=== PATIENT | female | born 1990 | race Caucasian/White ===

== ENCOUNTER 2024-11-02 16:00 | Observation (INO) ==
--- NOTE | 2024-11-02 16:23 | Emergency Department Note ---
HPI - General Adult General Chief complaint: Neuro Symptoms/Deficit Stated complaint: face and arm tingling Time Seen by Provider: 11/02/24 16:11 Source: patient Mode of arrival: walk-in Limitations: no limitations History of Present Illness HPI narrative: This is a 34 year old female patient that presents to the ER with c/o waking up at 0500 with c/o left facial tingling and left arm tingling. Patient denies any chest pain, SOB, abdominal pain, speech difficulties, weakness, back pain, visual difficulty or N/V/D Onset (ago): hour(s) (11) Associated symptoms: Reports denies other symptoms Treatments prior to arrival: Reports none Related Data Allergies Allergy/AdvReac Type Severity Reaction Status Date / Time No Known Drug Allergies Allergy Verified 11/02/24 16:14 Review of Systems Status of ROS 10 or more systems reviewed and unremark able except as noted in history and below Constitutional Denies: fever, chills, change in weight, fatigue, malaise or night sweats Eyes Denies: change in vision, blurry vision, blind spots, light sensitivity, eye discomfort or eye discharge Ears, nose, mouth, and throat Denies: throat pain, neck pain, throat swelling, difficulty swallowing, hoarseness, mouth pain or swelling of lips/tongue Cardiovascular Denies: chest pain, palpitations, edema, swelling of feet/ankles, lightheadedness, shortness of breath with exertion or shortness of breath when lying down Respiratory Denies: shortness of breath, cough, wheezing, stridor, pain on inspiration, change in phlegm color or coughing up blood Gastrointestinal Denies: abdominal pain, nausea, vomiting, coffee grounds in vomit, heartburn, diarrhea, constipation or bloating Genitourinary Denies: painful urination, urinary frequency, urinary urgency, urinary incontinence, blood in urine or difficulty voiding Musculoskeletal Denies: back pain, neck pain, extremity pain, extremity swelling, joint pain, limited range of motion or joint swelling Integumentary/Breast Denies: rash, itching, redness, skin pain, skin tenderness, skin swelling or sores Neurological Reports: other (left facial tingling, left arm tingling); Denies: headache, numbness in extremities, weakness in extremities, lack of coordination, dizziness or vertigo Psychiatric Denies: anxiety, mood swings, panic attacks, change in sleep pattern or hopelessness Endocrine Denies: excessive urination, excessive thirst, fatigue or cold intolerance Hematologic/Lymphatic Denies: easy bruising, easy bleeding or enlarged lymph nodes Allergic/Immunologic Denies: hives, throat swelling, tongue swelling, facial swelling, wheezing or itchy eyes [facility] Medical History (Updated 11/02/24 @ 16:12 by Belle Gorman RN) PCOS (polycystic ovarian syndrome) Migraines Hypertension Surgical History (Updated 11/02/24 @ 16:12 by Belle Gorman RN) History of open reduction and internal fixation (ORIF) procedure Hx of cholecystectomy Social History Smoking status: never smoker Exam Constitutional: normal general appearance Vital Signs - 24 hr 11/02/24 16:02 Temperature 98.6 F Pulse Rate 86 Respiratory Rate 18 Blood Pressure 145/90 Pulse Oximetry 98 HENMT: normocephalic, head/scalp atraumatic, hearing grossly normal bilaterally, external ears normal, EACs normal, nasal mucous membranes normal, external nose normal, oral mucous membranes normal and oropharynx normal Eyes: PERRL, EOMs intact bilaterally, conjunctivae normal and no scleral icterus Neck/C-Spine: visual inspection normal and trachea midline Lymph: no lymphadenopathy noted Chest: inspection of chest normal Respiratory: breath sounds equal bilaterally, normal respiratory effort, clear to auscultation bilaterally, no wheezes, no rales, no retractions, no use of accessory muscles and chest percussion normal Cardiovascular: normal heart rate noted, regular rhythm noted, no gallop, no rub, no murmur, no JVD, no clicks, peripheral pulses 2+ throughout, no bruits noted and no additional abnormal heart sounds Gastrointestinal: abdomen normal to inspection, abdomen soft to palpation, nontender to palpation, nontender to percussion, nondistended, normoactive bowel sounds, no hepatosplenomegaly, no masses, no pulsatile mass, no ascites and no hernia Genitourinary: no CVA tenderness Back/Pelvis: spine normal to inspection Extremities: normal to inspection, normal to palpation, no tenderness, full ROM, no joint enlargement and no deformity Neurology: deburrer II-XII intact, no movement abnormality noted, no focal motor deficit noted, no sensory deficits noted, gait normal, speech normal, coordination normal, no pronator drift noted, no fasciculations noted and GCS normal Psychiatry: mental status grossly normal, oriented x3, thought process normal, cooperative and affect normal Skin: skin color normal Course Course Hospital Course: 1740: consult placed to for neurology consult 1804: spoke to Dr Parker from and she states to get the MRI of Brain and C spine tomorrow in the morning with and without contrast. Will admit patient to the hospital for further evaluation and treatment. VSS, no s/s of acute distress noted Vital Signs Vital signs: Vital Signs Temperature 98.6 F 11/02/24 16:02 Pulse Rate 86 11/02/24 16:02 Respiratory Rate 18 11/02/24 16:02 Blood Pressure 145/90 11/02/24 16:02 Pulse Oximetry 98 11/02/24 16:02 Temperature 98.6 F 11/02/24 16:02 Pulse Rate 86 11/02/24 16:02 Respiratory Rate 18 11/02/24 16:02 Blood Pressure 145/90 11/02/24 16:02 Pulse Oximetry 98 11/02/24 16:02 Medical Decision Making Differential Diagnosis Differential Diagnosis: viral illness Medical Records Medical records reviewed: Yes I reviewed the patient's medical records Lab Data Lab results reviewed: Yes I reviewed the patient's lab results Labs: Lab Results 11/02/24 11/02/24 Range/Units 16:10 16:30 WBC 8.7 (4.3-9.3) K/uL RBC 4.7 (4.00-5.50) M/uL Hgb 13.5 (12.5-15.8) gm/dL Hct 40.4 (35.9-46.7) % MCV 86.6 (81.0-93.7) fl MCH 28.9 (27.6-32.2) pg MCHC 33.3 (33.1-35.3) g/dl RDW 13.7 (11.4-14.2) % Plt Count 234 (152-353) K/uL MPV 8.8 (6.9-10.8) fl Gran % 66.6 (47.8-71.3) % Lymph % (Auto) 24.6 (20.0-43.0) % [place] % (Auto) 4.1 (3.6-9.8) % Eos % (Auto) 4.1 H (0.4-2.8) % Baso % (Auto) 0.6 (0.1-0.85) Lymph # (Auto) 2.1 (1.1-3.1) [place] # (Auto) 0.4 L (1.1-3.1) Eos # (Auto) 0.4 H (0.0-0.2) Baso # (Auto) 0.1 (0.0-0.1) Absolute Gran (auto) 5.8 (2.3-6.0) Sodium 143 (136-145) mmol/L Potassium 3.7 (3.6-5.2) mmol/L Chloride 106.0 (98-107) mmol/L Carbon Dioxide 28 (21-32) mmol/L Anion Gap 9.0 (4-14) mEq/L BUN 17 (7-18) mg/dL Creatinine 0.8 (0.6-1.3) mg/dL Estimated GFR 99.1 (>59.9) Glucose 86 (70-110) mg/dL Calcium 9.2 (8.5-10.1) mg/dL Total Bilirubin 0.33 (0.0-1.0) mg/dL AST 13 L (15-37) U/L ALT 23 L (30-65) U/L Alkaline Phosphatase 113 (50-136) U/L Troponin I High Sens 4.80 (4.0-60.4) ng/L Total Protein 7.3 (6.4-8.2) g/dL Albumin 4.0 (3.4-5.0) g/dL Urine Color Yellow (STRAW/YELL.) Urine Appearance Clear (CLEAR) Ur Specific [place] 1.025 (1.001-1.035) Urine Protein Negative (NEGATIVE) Urine Glucose (UA) Normal (NORMAL) Urine Ketones Negative (NEGATIVE) Urine Occult Blood Negative (NEG - TRACE) Urine Nitrite Negative (NEGATIVE) Urine Bilirubin Negative (NEGATIVE) Urine Urobilinogen Normal (NORMAL) Ur Leukocyte Esterase Negative (NEGATIVE) Urine Test Negative (Negative) Fluid pH 6.0 (5 - 9) Imaging Data CT scan - head: Attestation: I have reviewed the pertinent imaging results. ECG Data Attestation: I have reviewed the pertinent ECG results. Discharge Plan Discharge Patient Disposition: Admitted As Observation Condition: Stable Chief Complaint: Neuro Symptoms/Deficit Clinical Impression: Transient cerebral ischemia, Left face and left arm tingling Print Language: Serbian Referrals: Guru Marie [Primary Care Provider] - Time of Disposition: 18:07
[2024-11-02 16:41] LABS: Basophils #(Absolute) Auto 0.1 (0.0-0.1); Basophils%(Percent) Auto 0.6 (0.1-0.85); Eosinophils#(Absolute)Auto 0.4 (0.0-0.2); Eosinophils%(Percent) Auto 4.1 % (0.4-2.8); Granulocytes % - Auto 66.6 % (47.8-71.3); Granulocytes#(Absolute)- Auto 5.8 (2.3-6.0); Hematocrit 40.4 % (35.9-46.7); Mean Corpuscular Volume 86.6 fl (81.0-93.7); Monocytes #(Absolute)- Auto 0.4 (1.1-3.1); Monocytes %(Percent)- Auto 4.1 % (3.6-9.8); Platelet Count 234 K/uL (152-353); White Blood Count 8.7 K/uL (4.3-9.3)
[2024-11-02 16:50] LABS: Specific Gravity Urine 1.025 (1.001-1.035); Urine Appearance CLEAR (CLEAR); Urine Blood NEGATIVE (NEG - TRACE); Urine Color YELLOW (STRAW/YELL.)
[2024-11-02 16:51] LABS: Urine Urobilinogen Normal (NORMAL)
[2024-11-02 16:51] LABS: Potassium 3.7 mmol/L (3.6-5.2)
[2024-11-02] MEDS ORDERED: ONDANSETRON HCL/PF 4 MG/2 ML VIAL INJ PRN (19:35)
[2024-11-02] MEDS ORDERED: DOCUSATE SODIUM 100 MG CAPSULE PO PRN (19:35)
[2024-11-02] MEDS ORDERED: MAGNESIUM, ALUMINUM HYDROXIDE 30 ML ORAL.SUSP PO PRN (19:35)
[2024-11-02] MEDS: FAMOTIDINE 20 MG TABLET PO SCH (21:29)
[2024-11-02] MEDS: ACETAMINOPHEN 500 MG TABLET PO PRN (21:29)
[2024-11-03 05:28] LABS: Basophils%(Percent) Auto 0.5 (0.1-0.85); Eosinophils#(Absolute)Auto 0.3 (0.0-0.2); Eosinophils%(Percent) Auto 4.4 % (0.4-2.8); Granulocytes % - Auto 64.5 % (47.8-71.3); Granulocytes#(Absolute)- Auto 4.6 (2.3-6.0); Hematocrit 38.6 % (35.9-46.7); Mean Corpuscular Volume 86.8 fl (81.0-93.7); Monocytes #(Absolute)- Auto 0.4 (1.1-3.1); Monocytes %(Percent)- Auto 5.2 % (3.6-9.8); Platelet Count 211 K/uL (152-353); White Blood Count 7.1 K/uL (4.3-9.3)
[2024-11-03 05:35] LABS: Potassium 3.7 mmol/L (3.6-5.2)
--- NOTE | 2024-11-03 08:27 | History & Physical Report ---
H&P: HPI History of Present Illness Chief complaint: left facial and arm tingling, TIA Narrative: Ms. Handy awoke yesterday morning with L facial numbness and L arm tinging and presented to the ED later in the afternoon. [facility] was consulted recommending MRI and overnight observation. Patient does report decrease in numbness and tingling to L side this morning. She does have history of migraines and states that she had headache the night prior but would not describe it like her migraines in the past. Prior migraine treatments have been tylenol with motrin, and toradol w/ benadryl. She was recently prescribed topiramate but has not started it. Labs and vitals are unremarkable. CXR was negative. CT head did show ischemic changes vs demyelinization. Review of Systems Status of ROS 10 or more systems reviewed and unremark able except as noted in history and below Constitutional Denies: fever, chills, change in weight, fatigue, malaise or night sweats Eyes Denies: change in vision, blurry vision, blind spots, light sensitivity, eye discomfort or eye discharge Ears, nose, mouth, and throat Denies: throat pain, neck pain, throat swelling, difficulty swallowing, hoarseness, mouth pain, swelling of lips/tongue or vertigo Cardiovascular Denies: chest pain, palpitations, edema, swelling of feet/ankles, lightheadedness, shortness of breath with exertion or shortness of breath when lying down Respiratory Denies: shortness of breath, cough, wheezing, stridor, pain on inspiration, change in phlegm color or coughing up blood Gastrointestinal Denies: abdominal pain, nausea, vomiting, coffee grounds in vomit, heartburn, diarrhea, constipation, bloating or difficulty swallowing Genitourinary Denies: painful urination, urinary frequency, urinary urgency, urinary incontinence, blood in urine or difficulty voiding Musculoskeletal Denies: back pain, neck pain, extremity pain, extremity swelling, joint pain, limited range of motion or joint swelling Integumentary/Breast Denies: rash, itching, redness, skin pain, skin tenderness, skin swelling or sores Neurological Reports: headache (started thursday), numbness in extremities (L arm) and other (left facial tingling, left arm tingling); Denies: weakness in extremities, lack of coordination, dizziness or vertigo Psychiatric Denies: anxiety, mood swings, panic attacks, change in sleep pattern or hopelessness Endocrine Denies: excessive urination, excessive thirst, fatigue or cold intolerance Hematologic/Lymphatic Denies: easy bruising, easy bleeding or enlarged lymph nodes Allergic/Immunologic Denies: hives, throat swelling, tongue swelling, facial swelling, wheezing or itchy eyes PFSH PFSH Medical History (Updated 11/03/24 @ 08:22 by Roberto Guerrero NP) PCOS (polycystic ovarian syndrome) Migraines Hypertension Surgical History (Updated 11/02/24 @ 16:12 by Belle Gorman RN) History of open reduction and internal fixation (ORIF) procedure Hx of cholecystectomy Social History Smoking status: never smoker Problems where you live: no known problems Highest level of school completed/degree received: [place] Home Medications and Allergies Home Medications Medication Instructions Recorded Confirmed Type ergocalciferol (vitamin D2) 1,250 1,250 mcg PO Q7D 11/03/24 11/03/24 History mcg (50,000 unit) capsule (Vitamin D2) omeprazole 20 mg capsule,delayed 20 mg PO DAILY 11/03/24 11/03/24 History release tirzepatide (weight loss) 7.5 7.5 mg subcut Q7D 11/03/24 11/03/24 History mg/0.5 mL subcutaneous pen injector (Zepbound) Allergies Allergy/AdvReac Type Severity Reaction Status Date / Time No Known Drug Allergies Allergy Verified 11/02/24 16:14 Exam Constitutional: normal general appearance Vital Signs - 24 hr 11/02/24 16:02 11/02/24 19:11 11/02/24 19:35 Temperature 98.6 F 98.6 F 98.3 F Pulse Rate 86 86 Pulse Rate [Brachi al] 79 Respiratory Rate 18 18 18 Blood Pressure 145/90 145/90 Blood Pressure [Le ft Arm] 136/80 Pulse Oximetry 98 98 94 L Oxygen Delivery Me thod Room Air 11/02/24 19:35 11/02/24 19:36 11/02/24 19:36 Temperature 98.3 F 98.3 F Pulse Rate Pulse Rate [Brachi al] 79 79 Respiratory Rate 18 18 Blood Pressure Blood Pressure [Le ft Arm] 136/80 136/80 Pulse Oximetry 96 94 L Oxygen Delivery Me thod Room Air Room Air Room Air 11/02/24 23:35 11/03/24 03:44 11/03/24 07:58 Temperature 97.9 F 97.5 F L 97.8 F Pulse Rate Pulse Rate [Brachi al] 72 72 71 Respiratory Rate 21 20 19 Blood Pressure Blood Pressure [Le ft Arm] 127/69 130/68 105/48 Pulse Oximetry 98 96 97 Oxygen Delivery Me thod Room Air Room Air Room Air HENMT: normocephalic, head/scalp atraumatic, hearing grossly normal bilaterally, external ears normal, EACs normal, nasal mucous membranes normal, external nose normal, oral mucous membranes normal and oropharynx normal Eyes: PERRL, EOMs intact bilaterally, conjunctivae normal and no scleral icterus Neck/C-Spine: visual inspection normal and trachea midline Lymph: no lymphadenopathy noted Chest: inspection of chest normal Respiratory: breath sounds equal bilaterally, normal respiratory effort, clear to auscultation bilaterally, no wheezes, no rales, no retractions, no use of accessory muscles and chest percussion normal Cardiovascular: normal heart rate noted, regular rhythm noted, no gallop, no rub, no murmur, no JVD, no clicks, peripheral pulses 2+ throughout, no bruits noted and no additional abnormal heart sounds Gastrointestinal: abdomen normal to inspection, abdomen soft to palpation, nontender to palpation, nontender to percussion, nondistended, normoactive bowel sounds, no hepatosplenomegaly, no masses, no pulsatile mass, no ascites and no hernia Genitourinary: no CVA tenderness Back/Pelvis: spine normal to inspection Extremities: normal to inspection, normal to palpation, no tenderness, full ROM, no joint enlargement and no deformity Neurology: operations intelligence superintendent II-XII intact, no movement abnormality noted, no focal motor deficit noted, no sensory deficits noted, gait normal, speech normal, coordination normal, no pronator drift noted, no fasciculations noted and GCS normal Psychiatry: mental status grossly normal, oriented x3, thought process normal, cooperative and affect normal Skin: skin color normal Assessment and Plan Assessment and Plan (1) Numbness and tingling: Assessment and Plan: Regular diet MRI w/ w/o POWER, Neck today Neuro q4hr Lipid panel Carotid US Code(s): R20.0 - Anesthesia of skin; R20.2 - Paresthesia of skin (2) Hypertension: Assessment and Plan: Stable Code(s): I10 - Essential (primary) hypertension (3) Migraines: Assessment and Plan: MRI today Consider tx pending MRI results Code(s): G43.909 - Migraine, unspecified, not intractable, without status migrainosus Results Labs Labs: CBC 11/02/24 11/03/24 Range/Units 16:30 05:20 WBC 8.7 7.1 (4.3-9.3) K/uL RBC 4.7 4.5 (4.00-5.50) M/uL Hgb 13.5 13.3 (12.5-15.8) gm/dL Hct 40.4 38.6 (35.9-46.7) % Plt Count 234 211 (152-353) K/uL Gran % 66.6 64.5 (47.8-71.3) % Lymph % (Auto) 24.6 25.4 (20.0-43.0) % [place] % (Auto) 4.1 5.2 (3.6-9.8) % Eos % (Auto) 4.1 H 4.4 H (0.4-2.8) % Baso % (Auto) 0.6 0.5 (0.1-0.85) Lymph # (Auto) 2.1 1.8 (1.1-3.1) [place] # (Auto) 0.4 L 0.4 L (1.1-3.1) Eos # (Auto) 0.4 H 0.3 H (0.0-0.2) Baso # (Auto) 0.1 0.0 (0.0-0.1) Absolute Gran (auto) 5.8 4.6 (2.3-6.0) CMP 11/02/24 11/03/24 16:30 05:20 Sodium 143 141 Potassium 3.7 3.7 Chloride 106.0 107.0 Carbon Dioxide 28 25 BUN 17 12 Creatinine 0.8 0.7 Glucose 86 90 Calcium 9.2 8.8 Liver Function 11/02/24 Range/Units 16:30 Total Bilirubin 0.33 (0.0-1.0) mg/dL AST 13 L (15-37) U/L ALT 23 L (30-65) U/L Alkaline Phosphatase 113 (50-136) U/L Albumin 4.0 (3.4-5.0) g/dL Urine 11/02/24 16:10 Urine Color Yellow Urine Appearance Clear Ur Specific [place] 1.025 Urine Protein Negative Urine Glucose (UA) Normal Imaging Imaging ordered: Chest x-ray and CT scan - head [facility] [address] [place] [id number] XRay Report Signed Patient: Heaven Handy MR#: [id number] : 1990 Acct:[id number] Age/Sex: 34 / F ADM Date: 11/02/24 Loc: ED Attending Dr: Ordering Physician: Frances Cosby Date of Service: 11/02/24 Procedure(s): XR chest 1V Accession Number(s): [id number] cc: Frances Cosby~ EXAM: XR CHEST 1V HISTORY: FACE AND ARM TINGLING, CHEST PAIN; CV/STC COMPARISON: No relevant prior studies were available for comparison at the time of interpretation. TECHNIQUE: XR CHEST 1V FINDINGS: Chest: Lines and tubes: None Mediastinum: Cardiac and mediastinal shadow is within normal limits for size and contour. Pulmonary vessels: No pulmonary vascular congestion. Lung calzada: No suspicious airspace opacity. Pleura: No effusion. No pneumothorax. Bones and soft tissues: No acute osseous or soft tissue abnormality. IMPRESSION: 1. No acute cardiopulmonary abnormality THIS IS AN ELECTRONICALLY VERIFIED FINAL REPORT 11/02/2024 5:08 PM - Electronically signed by Joe Tuttle MD Dictated By: Joe Tuttle M.D. Signed By: 11/02/248 DD/ 04 TD/TT: 11/02/241705 [employer]: [employer] [address] [place] [id number] Scan Report Signed Patient: Heaven Handy MR#: [id number] : 1990 Acct:[id number] Age/Sex: 34 / F ADM Date: 11/02/24 Loc: ED Attending Dr: Ordering Physician: Frances Cosby Date of Service: 11/02/24 Procedure(s): CT head/brain wo con Accession Number(s): [id number] cc: Guru Marie; Frances Cosby~ EXAM: CT HEAD/BRAIN WO CON HISTORY: facial tinglingfacial tingling; COMPARISON: None available. TECHNIQUE: Multiple axial images of the brain were obtained from the skull base to the vertex without administration of IV contrast. Dose reduction techniques including Automated Exposure Control (AEC) and adjustment of mA and kV were utilized. FINDINGS: No acute intraparenchymal hemorrhage or mass can be identified. No extra-axial fluid collections are seen. No alteration in the attenuation of the brain parenchyma can be identified to suggest acute or subacute ischemic change. There are some very mild nonspecific white matter signal changes in the supratentorial white matter 20 this could be due to early small-vessel ischemic changes and certainly demyelinating disorder could give a similar appearance. Follow-up with MRI with and without contrast may be of benefit for improved characterization. The ventricular system is symmetric and nondilated. The ex tracranial structures appear unremarkable. IMPRESSION: 1. Nodular white matter changes as above. THIS IS AN ELECTRONICALLY VERIFIED FINAL REPORT 11/02/2024 5:13 PM - Electronically signed by Fredi Mayen MD Dictated By: Minh Mayen M.D. Signed By: 11/02/24 1713 DD/ 1615 TD/TT: 11/02/24 1701 Computerized Mill Recorder:
[2024-11-03] MEDS: PANTOPRAZOLE SODIUM 40 MG TABLET.DR PO SCH (09:31)
[2024-11-04 05:26] LABS: Basophils%(Percent) Auto 0.5 (0.1-0.85); Eosinophils#(Absolute)Auto 0.3 (0.0-0.2); Eosinophils%(Percent) Auto 3.8 % (0.4-2.8); Granulocytes % - Auto 69.4 % (47.8-71.3); Granulocytes#(Absolute)- Auto 5.9 (2.3-6.0); Hematocrit 38.8 % (35.9-46.7); Mean Corpuscular Volume 87.1 fl (81.0-93.7); Monocytes #(Absolute)- Auto 0.3 (1.1-3.1); Monocytes %(Percent)- Auto 3.6 % (3.6-9.8); Platelet Count 220 K/uL (152-353); White Blood Count 8.5 K/uL (4.3-9.3)
[2024-11-04 05:45] LABS: Potassium 3.4 mmol/L (3.6-5.2)
[2024-11-04 07:57] VITALS: PULSE 69
[2024-11-04] MEDS: POTASSIUM CHLORIDE 20 MEQ TAB.ER.PRT PO ONE (09:26)
[2024-11-04] MEDS: MAGNESIUM OXIDE 400 MG TABLET PO ONE (09:26)
--- NOTE | 2024-11-04 11:14 | Discharge Summary ---
DS: Providers Provider Date of admission: 11/02/24 18:22 Primary care physician: Guru Marie Admitting clinician: Frances Cosby Attending physician on admission: Denia Palma Attending physician on discharge: Denia Palma Discharging clinician: Denia Palma Anticipated date of discharge: 11/04/24 DS: Diagnosis Discharge Diagnosis (1) Demyelinating disease: (2) Numbness and tingling: (3) Hypertension: Qualifiers: Hypertension type: primary hypertension Qualified Code(s): I10 - Essential (primary) hypertension (4) Migraines: Qualifiers: Intractability: not intractable Migraine type: unspecified Status migrainosus presence: without status migrainosus Qualified Code(s): G43.909 - Migraine, unspecified, not intractable, without status migrainosus Plan Pantoprazole Sodium 40 mg PO DAILY Famotidine 20 mg PO BID Acetaminophen 500 mg PO Q6H PRN Ondansetron hcl 4 mg INJ Q6H PRN Magnesium Hydroxide 30 ml PO DAILY PRN Docusate Sodium 100 mg PO DAILY PRN Discharge home for self care. Neurology Referral with [facility] DS: Summary Hospital Course Hospital Course: Ms. Handy awoke yesterday morning with L facial numbness and L arm tinging and presented to the ED later in the afternoon. [facility] was consulted recommending MRI and overnight observation. Patient does report decrease in numbness and tingling to L side this morning. She does have history of migraines and states that she had headache the night prior but would not describe it like her migraines in the past. Prior migraine treatments have been Tylenol with Motrin, and Toradol w/ Benadryl. She was recently prescribed topiramate but has not started it. Labs and vitals are unremarkable. CXR was negative. CT head did show ischemic changes vs demyelinization. Patient had an uneventful night. Facial and arm tingling have resolved. Patient reports she has had an MRI in the past (high school) and was told she had migraines. Discussed neurology referral options with patient, referral being sent to [facility]. Educated patient on no driving until cleared by Neurology specialist. Patient is ready for discharge home for self care. Status at Discharge Functional status at discharge: independent ambulation Overall status at discharge: patient is back to baseline Time Spent with Patient Time attestation: Total time spent providing and/or coordinating discharge services: 67 minutes Time spent: greater than 30 minutes Exam Exam: Patient in NAD. Constitutional: abnormal general appearance (disheveled), no apparent distress, abnormal body habitus (obese), limitations noted (No Driving) and alert Vital Signs - 24 hr 11/03/24 12:00 11/03/24 16:00 11/03/24 19:58 Temperature 98 F 98.2 F 98.3 F Pulse Rate [Brachi al] 67 81 89 Respiratory Rate 19 19 16 Blood Pressure [Le ft Arm] 137/48 136/67 125/55 Pulse Oximetry 98 98 100 Oxygen Delivery Me thod Room Air Room Air Room Air 11/03/24 23:49 11/04/24 03:57 11/04/24 07:56 Temperature 97.6 F 98.8 F 98.3 F Pulse Rate [Brachi al] 74 78 69 Respiratory Rate 16 16 17 Blood Pressure [Le ft Arm] 114/48 120/70 119/65 Pulse Oximetry 100 96 99 Oxygen Delivery Me thod Room Air Room Air Room Air HENMT: normocephalic, head/scalp atraumatic, hearing grossly normal bilaterally, external ears normal, EACs normal, nasal mucous membranes normal, external nose normal, oral mucous membranes normal and oropharynx normal Eyes: PERRL, EOMs intact bilaterally, conjunctivae normal and no scleral icterus Neck/C-Spine: visual inspection normal and trachea midline Lymph: no lymphadenopathy noted Chest: inspection of chest normal Respiratory: breath sounds equal bilaterally, normal respiratory effort, clear to auscultation bilaterally, no wheezes, no rales, no retractions, no use of accessory muscles and chest percussion normal Cardiovascular: normal heart rate noted, regular rhythm noted, no gallop, no rub, no murmur, no JVD, no clicks, peripheral pulses 2+ throughout, no bruits noted and no additional abnormal heart sounds Gastrointestinal: abdomen normal to inspection, abdomen soft to palpation, nontender to palpation, nontender to percussion, nondistended, normoactive bowel sounds, no hepatosplenomegaly, no masses, no pulsatile mass, no ascites and no hernia Genitourinary: no CVA tenderness Back/Pelvis: spine normal to inspection Extremities: normal to inspection, normal to palpation, no tenderness, full ROM, no joint enlargement and no deformity 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, no movement abnormality noted, no focal motor deficit noted, no sensory deficits noted, gait normal, speech normal, coord ination normal, no pronator drift noted, no fasciculations noted and GCS normal Psychiatry: mental status grossly normal, oriented x3, thought process normal, cooperative and affect normal Skin: skin color abnormal Reports (flushed) (face), no rash, no lesions, no ecchymosis noted, no wounds, no lacerations, skin turgor normal, no jaundice, no petechiae, no mottling, nails abnormality noted and no alopecia DS: Data Data Completed and Pending Labs on day of discharge: Labs from last 24 hours 11/04/24 05:20 WBC 8.5 RBC 4.5 Hgb 13.1 Hct 38.8 MCV 87.1 MCH 29.4 MCHC 33.7 RDW 13.5 Plt Count 220 MPV 8.6 Gran % 69.4 Lymph % (Auto) 22.7 Towns % (Auto) 3.6 Eos % (Auto) 3.8 H Baso % (Auto) 0.5 Lymph # (Auto) 1.9 Towns # (Auto) 0.3 L Eos # (Auto) 0.3 H Baso # (Auto) 0.0 Absolute Gran (auto) 5.9 Sodium 141 Potassium 3.4 L Chloride 106.0 Carbon Dioxide 25 Anion Gap 10.0 BUN 13 Creatinine 0.9 Estimated GFR 86.0 Glucose 109 Calcium 8.8 Triglycerides 151 Cholesterol 130 LDL Cholesterol 79.0 VLDL Cholesterol, Calc 30 HDL Cholesterol 40 LDL/HDL Ratio 2.0 Cholesterol/HDL Ratio 3 Imaging Chest x-ray: Attestation: I have reviewed the pertinent imaging results. Radiologist's impression: XR CHEST 1V HISTORY: FACE AND ARM TINGLING, CHEST PAIN; CV/STC COMPARISON: No relevant prior studies were available for comparison at the time of interpretation. TECHNIQUE: XR CHEST 1V FINDINGS: Chest: Lines and tubes: None Mediastinum: Cardiac and mediastinal shadow is within normal limits for size and contour. Pulmonary vessels: No pulmonary vascular congestion. Lung calzada: No suspicious airspace opacity. Pleura: No effusion. No pneumothorax. Bones and soft tissues: No acute osseous or soft tissue abnormality. IMPRESSION: 1. No acute cardiopulmonary abnormality CT scan - head: Attestation: I have reviewed the pertinent imaging results. Radiologist's impression: CT HEAD/BRAIN WO CON HISTORY: facial tinglingfacial tingling; COMPARISON: None available. TECHNIQUE: Multiple axial images of the brain were obtained from the skull base to the vertex without administration of IV contrast. Dose reduction techniques including Automated Exposure Control (AEC) and adjustment of mA and kV were utilized. FINDINGS: No acute intraparenchymal hemorrhage or mass can be identified. No extra-axial fluid collections are seen. No alteration in the attenuation of the brain parenchyma can be identified to suggest acute or subacute ischemic change. There are some very mild nonspecific white matter signal changes in the supratentorial white matter 20 this could be due to early small-vessel ischemic changes and certainly demyelinating disorder could give a similar appearance. Follow-up with MRI with and without contrast may be of benefit for improved characterization. The ventricular system is symmetric and nondilated. The extracranial structures appear unremarkable. IMPRESSION: 1. Nodular white matter changes as above. MRI - head: Attestation: I have reviewed the pertinent imaging results. Radiologist's impression: MR HEAD/BRAIN WO/W CON HISTORY: FACE AND ARM TINGLING SINCE YESTERDAY DOWN LEFT SIDE; GFR: 116 11 ML PROHANCE. COMPARISON STUDY: Noncontrast CT brain 11/02/2024 TECHNIQUE: Multiplanar MR images of the brain using multiple imaging sequences pre and post intravenous contrast. FINDINGS: Diffusion-weighted axial images show no evidence of acute CVA or acute demyelination. Ventricles normal size and shape. Normal flow void within the cavernous portions of the internal carotid arteries bilaterally and basilar artery. The FLAIR and T2 weighted images demonstrate multiple foci of abnormal high signal scattered within the deep white matter adjacent to the lateral ventricles and centrum semiovale regions bilaterally measuring up to 1.5 cm without associated mass effect or enhancement. Consider chronic ischemic white matter changes from small vessel disease or other causes of demyelination/gliosis such as multiple sclerosis. There are no areas of abnormal enhancement seen within the brain. There is enhancement of the dural venous sinuses. The orbital globes and retro-orbital structures, sella and suprasellar regions, cervicomedullary junction appear intact. There is a 3 cm mucous retention cyst left inferior maxillary sinus. IMPRESSION: No evidence of acute CVA or acute demyelination. Regions of abnormal signal within both cerebral hemispheres as described above. Consider chronic ischemic changes perhaps from small vessel disease, vasculitis, or other causes of demyelination such as multiple sclerosis. mr cervical spine: Attestation: I have reviewed the pertinent imaging results. Radiologist's impression: EXAM: MR CERVICAL SPINE WO/W CON HISTORY: FACE AND ARM TINGLINGFACE AND ARM TINGLING; GFR: 116.3 11 ML PROHANCE COMPARISON: None TECHNIQUE: Multiplanar multisequence MRI of the cervical spine was obtained utilizing standard departmental protocol. Pre and postcontrast images were obtained FINDINGS: There is some motion artifact reducing accuracy of the exam alignment of the cervical spine is maintained. No abnormal signal characteristics of the bone marrow can be identified. No evidence for fracture or significant bone or edema can be seen. The surrounding soft tissues are unremarkable. There is no abnormal cord signal or postcontrast enhancement appreciated. C2 -- C3: Unremarkable C3 -- C4: Mild disc ridging with no significant stenosis. C4 -- C5: Mild disc ridging with no significant stenosis C5 -- C6: Unremarkable C6 -- C7: Unremarkable C7 -- T1: Unremarkable IMPRESSION: Mild degenerative changes as above with no significant stenosis. No abnormal cord signal a postcontrast enhancement is seen. Discharge Plan Discharge Disposition: Home, Self-Care Condition: Improved Discharge Medications: New aspirin 81 mg tablet,delayed release (DR/EC) 81 mg PO DAILY Qty: 30 0RF Continued omeprazole 20 mg capsule,delayed release(DR/EC) 20 mg PO DAILY ergocalciferol (vitamin D2) [Vitamin D2] 1,250 mcg (50,000 unit) capsule 1,250 mcg PO Q7D Zepbound 7.5 mg/0.5 mL pen injector 7.5 mg SUBCUT Q7D Discharge Orders: Discharge Order (Routine); Ordered 11/04/24 Ordered By: Denia Palma Activity: increase activity as tolerated Diet: advance to your usual diet Interventions: MED/SURG & ICU Observation Charge Sheet Last Done: 11/04/24 11:07 Patient Instructions: Chronic Inflammatory Demyelinating Polyneuropathy (DC) Activity Restrictions/Additional Instructions: NO driving until released by physician increase water intake stop zepbound at this time follow-up with primary care doctor in next 5-7 days follow-up with neurology [facility] calling patient directly with zneurology follow up Forms: Portal/Health Info Access Inst Follow-Ups: Guru Marie [Primary Care Provider] -
[2024-11-04 12:14] VITALS: BP 130/70; RESP 20; TEMP 98.8
--- NOTE | 2024-11-11 12:08 | Echocardiogram Report ---
Study Quality: Good Indications / History: Tingling face and arm. Diagnosis/CPT Code(s): TTE - 2D w/ or w/o M-Mode Complete (68048). Echo Dimensions Ao Root Carie (M-Mode): 3.3 cm LA Dimen (M-Mode): 4.3 cm IVS(D) (M-Mode): 0.98 cm IVS(D) (2D): 1.1 cm LVPW(D) (M-Mode): 1.06 cm LVPW(D) (2D): 1 cm LV(D) (M-Mode): 5.45 cm LV(D) (2D): 5 cm LV(S) (M-Mode): 3.86 cm LV(S) (2D): 3.5 cm Asc Ao Carie (2D): 2.7 cm RV(D (2D): 3.2 cm LVOT (2D): 2.1 cm AV opening (M-Mode): 2.2 cm EF (M-Mode): 56 % EF (2D): 56 % RVSP (Doppler): 41 mmHg Doppler ------- * Aortic Valve LVOT Peak Gradient: 1 mmHg. LVOT Peak Velocity: 0.52 m/s. LVOT Mean Grad: 1 mmHg. LVOT VTI: 13.1 cm. LVOT/AV VTI: 0.3. AV Peak Velocity: 1.77 m/s. AV Peak Gradient: 13 mmHg. AV Mean Gradient: 8 mmHg. AV VTI: 43.7 cm. * Mitral Valve MV Area (PHT): 3.01 cm2. MV Peak E Genaro: 0.84 m/s. MV Peak A Genaro: 0.62 m/s. E/A: 1.4. MV PHT: 73 ms. MV Dec T: 248 ms. * Diastolic Functions / TDI E/e' medial: 11.6. E/e' lateral: 7.8. E/e' average: 9.7. Peak e' medial genaro: 7.29 cm/s. Peak e' lateral genaro: 10.8 cm/s. * Tricuspid Valve RVSP: 41 mmHg. RA Pressure: 10 mmHg. TR Peak Grad: 31 mmHg. TV Regurg.Peak Genaro: 2.79 m/s. Findings -------- Left Ventricle LV chamber and wall dimensions are normal. There is normal LV systolic function. There are no wall motion abnormalities. The estimated LV ejection fraction is normal at 55-60%. Right Ventricle There is normal right ventricular size, wall dimension, and systolic function. Left Atrium Left Atrium chamber is mildly dilated. LA diameter is 4.3 cm. Right Atrium RA chamber size is normal. Aortic Valve The aortic valve is structurally normal. There is a trileaflet aortic valve. There is trace aortic regurgitation. There is no aortic valve stenosis. Mitral Valve The mitral valve leaflet is mildly thickened. There is trace mitral regurgitation. There is no mitral stenosis. Tricuspid Valve Tricuspid valve is structurally normal. There is trace tricuspid regurgitation. Estimated RVSP systolic pressure is 41 mmHg. Pulmonary Valve The pulmonic valve structurally is normal. There is trivial pulmonic regurgitation. Pericardium The pericardium is normal. There is no pericardial effusion present. Aorta The size of the visualized portion of aortic root is within normal limits. Aortic Root diameter (M-mode) is 3.3 cm. Thrombus/Mass There is no intracardiac mass or thrombus identified. Impressions * M-mode, 2-D echocardiogram is performed with cardiac doppler including, spectral doppler (continuous wave and pulse wave) and color flow. There is no evidence of intracavitary mass or thrombus. Right heart pressure is 41 mmHg. * Normal left ventricular size, wall thickness and systolic function. * No left ventricular wall motion abnormalities. * LVEF (normal): 55-60%. * Normal right ventricular size and function. * Mild left atrial enlargement. * Trivial aortic regurgitation. * Trivial mitral regurgitation. * Trivial tricuspid regurgitation. * Trivial pulmonic regurgitation. * The size of the visualized portion of aortic root is within normal limits. * No pericardial effusion. * There are no prior studies available for comparison. Electronically signed by: Adrian Serrano MD 11/11/2024 9:28 AM [place]
== END 2024-11-04 13:45 | disposition home or self-care (01) ==
LOC: MS 16:00 → ED 16:00 → MS 19:13
PROVIDERS: ADMIT Nurse Practitioner; ATTEND Nurse Practitioner
DX: Z79.899 Other long term (current) drug therapy; I11.9 Hypertensive heart disease without heart failure; I08.8 Other rheumatic multiple valve diseases; G37.9 Demyelinating disease of central nervous system, unspecified; M47.812 Spondylosis without myelopathy or radiculopathy, cervical region; G43.909 Migraine, unspecified, not intractable, without status migrainosus; R90.82 White matter disease, unspecified